=== PATIENT | female | born 1995 | race Caucasian/White ===

== ENCOUNTER 2016-09-18 20:12 | Emergency (ER) | payer MEDICAID, OTHER ==
[2016-09-18 20:19] VITALS: BP 147/97; BMI 29.2
[2016-09-18 20:55] LABS: BILIRUBIN,URINE NEGATIVE (NEGATIVE); BLOOD/HEMOGLOBIN,URINE 1+ (NEGATIVE); GLUCOSE, URINE NEGATIVE (NEGATIVE); KETONES,URINE NEGATIVE (NEGATIVE); LEUKOCYTE ESTERASE ,URINE NEGATIVE (NEGATIVE); NITRITES,URINE NEGATIVE (NEGATIVE); PH,URINE 6.5 (5.0 - 8.0); PROTEIN,URINE NEGATIVE (NEGATIVE); UROBILINOGEN,URINE NORMAL (NORMAL)
[2016-09-18 20:55] LABS: BASOPHILS # (AUTO) 0.1 X10^3/uL (0.0-0.1); BASOPHILS % (AUTO) 0.4 % (0.2-1.0); EOSINOPHILS # (AUTO) 0.2 x10^3/uL (0.0-0.2); EOSINOPHILS % (AUTO) 1.1 % (0.9-2.9); HEMATOCRIT 40.6 % (36.0-47.0); HEMOGLOBIN 13.8 g/dL (12.0-16.0); LYMPHOCYTES # (AUTO) 3.6 X10^3/uL (1.3-2.9); LYMPHOCYTES % (AUTO) 21.3 % (21.0-51.0); MEAN CORPUSCULAR HEMOGLOBIN 28.6 pg (27.0-34.0); MEAN CORPUSCULAR HGB CONC 33.9 g/dL (33.0-35.0); MEAN CORPUSCULAR VOLUME 84.3 fL (80.0-100.0); MEAN PLATELET VOLUME 7.6 fL (7.4-11.0); MONOCYTES # (AUTO) 1.2 x10^3/uL (0.3-0.8); MONOCYTES % (AUTO) 7.2 % (0.0-13.0); NEUTROPHILS # (AUTO) 11.9 x10^3/uL (2.2-4.8); PLATELET COUNT 260 X10^3/uL (150.0-450.0); RED BLOOD COUNT 4.82 X10^6/uL (3.5-5.4); RED CELL DISTRIBUTION WIDTH 12.7 % (11.6-16.5)
[2016-09-18 21:03] LABS: APPEARANCE,URINE CLEAR (CLEAR); COLOR,URINE YELLOW (YELLOW); RBC,URINE 0-3 /HPF (NEGATIVE); SQUAMOUS EPITHELIAL CELL,UR MODERATE /HPF (NEGATIVE)
[2016-09-18 21:03] LABS: ALANINE AMINOTRANSFERASE 172 Units/L (12-78); ALKALINE PHOSPHATASE 120 Units/L (46-116); ASPARTATE AMINO TRANSFERASE 52 Units/L (15-37); BLOOD UREA NITROGEN 8 mg/dL (7-18); CALCIUM 9.2 mg/dL (8.5-10.1); CHLORIDE 104 mmol/L (98-107); CREATININE 0.88 mg/dL (0.55-1.02); GLUCOSE 96 mg/dL (65-99); SODIUM 142 mmol/L (136-145); TOTAL PROTEIN 8.5 g/dL (6.4-8.2); eGFR BLACK RACES > 60 (>60); eGFR NON BLACK RACES > 60 (>60)
--- NOTE | 2016-09-18 21:03 | DR.GENAD ---
HPI - PCP Primary Care Physician: karol - HPI Comment HPI Comment: GETTING WORSE. NO DYSURIA. NO VAGINAL DISCHARGE. PATIENT LAST ATE AT 19:30 PM TONIGHT. SHE ALSO STARTED HAVING NAUSEA AND VOMITING TONIGHT. - Complaint/Symptoms Chief Complaint Doctors Comments: PAIN RIGHT LOWER ABDOMEN AND BACK OVER ONE WEEK. Chief Complaint:: pt c/o rt sided pain for over a week pt states" it got worse today i feel like i have too pee and i don't " - Nurses notes reviewed Nurses Notes Review: Yes - Source History Provided: Patient - Mode of Arrival Mode of Arrival: Ambulatory - Timing Onset of Chief Complaint: 09/11/16 Came on: Suddenly - Duration Duration: Constant Duration: Days - Severity Severity: Moderate PMH - PMH Past Medical History: No Past Surgical History: Yes Surgical History: - Family History History of Family Medical Conditions: Yes Family Medical History: [place], Coronary Artery Disease - Social History Alcohol Use: None Do you use any recreational Drugs:: No Lives With: Family Lives Where: Home - infectious screening In the last 2 months have you had wt loss of >10#?: NO Have you had fever, night sweats or hemotysis?: No Have you traveled outside the country in the last 6 months?: No Isolation: Standard ROS - Review of Systems Constitutional: Fever. negative: Chills Eyes: No Symptoms Reported ENTM: No Symptoms Reported Respiratoy: No Symptoms Reported Cardiovascular: No Symptoms Reported Gastrointestinal/Abdominal: Abdominal Pain (RLQ ABDOMINAL PAIN.) Genitourinary: No Symptoms Reported Neurological: No Symptoms Reported Musculoskeletal: Back Pain (LOWER BACK) Integumentary: No Symptoms Reported Hematologic/Lymphatic: No Symptoms Reported Endocrine: No Symptoms Reported All Other Systems: Reviewed and Negative PE - Vital Signs Vitals: Temperature 99.4 F Pulse Rate 100 Respiratory Rate 18 Blood Pressure 147/97 O2 Sat by Pulse Oximetry 99 - General Limitations: No Limitations General Appearance: Alert - Head Head Exam: Normal Inspection - Eyes Eye exam: Normal Appearance - ENT ENT Exam: Normal External Ear Exam External Ear Exam: Normal External Inspection TM/Canal Exam: Bilateral Normal Nose Exam: Normal Nose Exam Mouth Exam: Normal Inspection Throat Exam: Normal Inspection - Neck Neck Exam: Normal Inspection - Chest Chest Inspection: Symmetric Chest Wall Rise - Respiratory Respiratory Exam: Normal Lung Sounds Bilat Respiratory Exam: Bilateral Clear to Auscultation - Cardiovascular Cardiovascular Exam: Regular Rate, Normal Rhythm, Normal Heart Sounds - Abdominal Exam Abdominal Exam: Normal Bowel Sounds, Soft, Tenderness Abdominal Tenderness: RLQ (TERNESS WITH GUARDING.) - Extremities Extremities Exam: Normal Inspection - Back 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 CRAVEN HOSPITALIST AT [facility]. DR. GOODMAN SURGEON WILL ACCEPT PATIENT IN HIS SURGICAL SERVICE. - Education/Counseling Education/Counseling: Patient, Family, Education Educated On: Diagnosis ROR - Labs Reviewed Laboratory Results Reviewed?: Yes Result Diagrams: 09/18/16 20:42 09/18/16 20:42 Laboratory: WBC 17.0 X10^3/uL (3.6-10.0) H 09/18/16 20:42 RBC 4.82 X10^6/uL (3.5-5.4) 09/18/16 20:42 Hgb 13.8 g/dL (12.0-16.0) 09/18/16 20:42 Hct 40.6 % (36.0-47.0) 09/18/16 20:42 MCV 84.3 fL (80.0-100.0) 09/18/16 20:42 MCH 28.6 pg (27.0-34.0) 09/18/16 20:42 MCHC 33.9 g/dL (33.0-35.0) 09/18/16 20:42 RDW 12.7 % (11.6-16.5) 09/18/16 20:42 Plt Count 260 X10^3/uL (150.0-450.0) 09/18/16 20:42 MPV 7.6 fL (7.4-11.0) 09/18/16 20:42 Neut % 70.0 % (42.0-75.0) 09/18/16 20:42 Lymph % 21.3 % (21.0-51.0) 09/18/16 20:42 Cotton % 7.2 % (0.0-13.0) 09/18/16 20:42 Eos % 1.1 % (0.9-2.9) 09/18/16 20:42 Baso % 0.4 % (0.2-1.0) 09/18/16 20:42 Neut # 11.9 x10^3/uL (2.2-4.8) H 09/18/16 20:42 Lymph # 3.6 X10^3/uL (1.3-2.9) H 09/18/16 20:42 Cotton # 1.2 x10^3/uL (0.3-0.8) H 09/18/16 20:42 Eos # 0.2 x10^3/uL (0.0-0.2) 09/18/16 20:42 Baso # 0.1 X10^3/uL (0.0-0.1) 09/18/16 20:42 Absolute Nucleated RBC 0.0 /100WBC 09/18/16 20:42 Sodium 142 mmol/L (136-145) 09/18/16 20:42 Corrected Sodium TNP 09/18/16 20:42 Potassium 4.0 mmol/L (3.5-5.1) 09/18/16 20:42 Chloride 104 mmol/L (98-107) 09/18/16 20:42 Carbon Dioxide 27.0 mmol/L (21-32) 09/18/16 20:42 BUN 8 mg/dL (7-18) 09/18/16 20:42 Creatinine 0.88 mg/dL (0.55-1.02) 09/18/16 20:42 Est GFR (MDRD) Af Amer > 60 (>60) 09/18/16 20:42 Est GFR (MDRD) Non-Af > 60 (>60) 09/18/16 20:42 Glucose 96 mg/dL (65-99) 09/18/16 20:42 Calcium 9.2 mg/dL (8.5-10.1) 09/18/16 20:42 Corrected Calcium TNP 09/18/16 20:42 Total Bilirubin 0.30 mg/dL (0.2-1.0) 09/18/16 20:42 AST 52 Units/L (15-37) H 09/18/16 20:42 ALT 172 Units/L (12-78) H 09/18/16 20:42 Alkaline Phosphatase 120 Units/L (46-116) H 09/18/16 20:42 Total Protein 8.5 g/dL (6.4-8.2) H 09/18/16 20:42 Albumin 4.0 g/dL (3.4-5.0) 09/18/16 20:42 Globulin 4.5 g/dL (2.5-4.5) 09/18/16 20:42 Albumin/Globulin Ratio 0.9 Ratio (1.1-2.1) L 09/18/16 20:42 HCG, Qual Negative <10 mIU/mL 09/18/16 20:42 Specimen Type Clean catch urine 09/18/16 20:34 Urine Color Yellow (YELLOW) 09/18/16 20:34 Urine Appearance Clear (CLEAR) 09/18/16 20:34 Urine pH 6.5 (5.0 - 8.0) 09/18/16 20:34 Ur Specific Keo 1.015 (1.000-1.030) 09/18/16 20:34 Urine Protein Negative (NEGATIVE) 09/18/16 20:34 Urine Glucose (UA) Negative (NEGATIVE) 09/18/16 20:34 Urine Ketones Negative (NEGATIVE) 09/18/16 20:34 Urine Occult Blood 1+ (NEGATIVE) 09/18/16 20:34 Urine Nitrite Negative (NEGATIVE) 09/18/16 20:34 Urine Bilirubin Negative (NEGATIVE) 09/18/16 20:34 Urine Urobilinogen Normal (NORMAL) 09/18/16 20:34 Ur Leukocyte Esterase Negative (NEGATIVE) 09/18/16 20:34 Urine RBC 0-3 /HPF (NEGATIVE) 09/18/16 20:34 Urine WBC 0-1 /HPF (NEGATIVE) 09/18/16 20:34 Ur Squamous Epith Cells Moderate /HPF (NEGATIVE) 09/18/16 20:34 Amorphous Sediment Trace /HPF (NEGATIVE) 09/18/16 20:34 Urine Bacteria Trace /HPF (NEGATIVE) 09/18/16 20:34 Ur Culture Indicated? No/not indicated 09/18/16 20:34 - XRAY XRAY Interpreted by: Radiologist XRAY Findings: REPORT DISCUSS WITH PATIENT. - Diagnosis Discharge Problem: Acute appendicitis Qualifiers: Acute appendicitis type: with localized peritonitis Qualified Code(s): K35.3 - Acute appendicitis with localized peritonitis - Discharge Plan Disposition: XFER [facility] HOSP Condition: Stable - Follow ups/Referrals Follow ups/Referrals: NFD,None [Primary Care Provider] - 3 days - Instructions
[2016-09-18 21:04] LABS: AMORPHOUS SEDIMENT,UR TRACE /HPF (NEGATIVE); BACTERIA,URINE TRACE /HPF (NEGATIVE)
[2016-09-18 21:05] LABS: SERUM PREGNANCY TEST, QUAL NEGATIVE <10 mIU/mL
[2016-09-18] MEDS ORDERED: DEMEROL INJ IVP ONE (21:12)
[2016-09-18] MEDS ORDERED: ZOFRAN INJ 4 MG VIAL IVP ONE (21:12)
[2016-09-18] MEDS ORDERED: DEMEROL INJ ONE (21:15)
[2016-09-18] MEDS ORDERED: ZOFRAN INJ 4 MG VIAL ONE (21:15)
[2016-09-18] MEDS ORDERED: NS 100 ML IV 100 ML IV ONE (22:58)
--- NOTE | 2016-09-18 23:38 | CT ---
EXAM: CT ABDOMEN AND PELVIS WITH CONTRAST INDICATION: Right lower quadrant pain COMPARISION: No priors available for comparison TECHNIQUE: Axial CT examination of the abdomen and pelvis was performed with intravenous contrast. The patient received intravenous contrast without adverse reaction. Coronal and sagittal reconstructions were c reated using the axial data. FINDINGS: The lung bases are clear. There is advanced diffuse fatty infiltration of the liver. The spleen, araya creas, adrenal glands, kidneys, and gallbladder are normal. There is no evidence of biliary ductal d ilatation. The aorta and inferior vena cava are normal in caliber. The bowel loops are nonobstructed . No abnormal mass, lymphadenopathy, or fluid collection. Urinary bladder is normal. The appendix is dilated and inflamed. Hazy fat stranding surrounds the a ppendix. No free air or abscess identified. The uterus and adnexa appear unremarkable. Fluid is seen in the pelvic cul-de-sac. The regional skeleton is intact. IMPRESSION: Findings acute appendicitis. No evidence of abscess or rupture. There is diffuse fatty infiltration of the liver. Reported By:
[2016-09-19] MEDS ORDERED: NS 1000 ML 1,000 ML ONE (00:26)
[2016-09-19] MEDS ORDERED: NS 1000 ML 1,000 ML IV SCH (01:00)
== END 2016-09-19 00:46 | disposition short-term general hospital (02) ==
LOC: ER 20:22
DX: K35.3 Acute appendicitis with localized peritonitis (principal); R10.813 Right lower quadrant abdominal tenderness; K76.0 Fatty (change of) liver, not elsewhere classified
CPT/HCPCS: 36415; 74177; 80053; 81001; 84703; 85025; 87040; 96365; 96374; 96375; 99285; A4222; J2175; J2405